=== PATIENT | male | born 1950 | race Caucasian/White ===

== ENCOUNTER 2021-08-28 07:40 | Day surgery (SDC) | payer MEDICARE, MEDICAID ==
[2021-08-21 14:14] LABS: BASOPHILS # (AUTO) 0.1 X10'3 (0-0.2); BASOPHILS % (AUTO) 0.9 % (0-1); EOSINOPHILS # (AUTO) 0.1 X10'3 (0-0.9); EOSINOPHILS % (AUTO) 1.4 % (0-6); LYMPHOCYTES # (AUTO) 1.3 X10'3 (1.1-4.8); LYMPHOCYTES % (AUTO) 17.9 % (21-51); MEAN CORPUSCULAR HEMOGLOBIN 28.4 PG (27.0-31.0); MEAN CORPUSCULAR HGB CONC 32.9 g/dL (33.0-36.5); MEAN CORPUSCULAR VOLUME 86.3 FL (78-98); MEAN PLATELET VOLUME 8.5 FL (7.4-10.4); MONOCYTES # (AUTO) 0.8 X10'3 (0-0.9); MONOCYTES % (AUTO) 10.2 % (2-12); NEUTROPHILS # (AUTO) 5.1 X10'3 (1.8-7.7); NEUTROPHILS % (AUTO) 69.6 % (42-75); PRE OP HEMATOCRIT 42.6 % (42.0-52.0); PRE OP PLATELET COUNT 187 X10'3 (140-440); RED BLOOD COUNT 4.93 X10'6 (4.70-6.10); RED CELL DISTRIBUTION WIDTH 15.3 % (11.5-14.5)
[2021-08-21 14:28] LABS: ALBUMIN/GLOBULIN RATIO 1.1 (1.1-1.5); ALKALINE PHOSPHATASE 49 IU/L (46-116); BLOOD UREA NITROGEN 37 MG/DL (7-18); BUN/CREATININE RATIO 27.2 (5.4-32.0); CALCIUM 9.2 MG/DL (8.5-10.1); CHLORIDE 102 MMOL/L (99-107); CREATININE 1.36 MG/DL (0.60-1.10); PRE OP ALT 19 U/L (30-65); PRE OP ANION GAP 2 (8-16); PRE OP AST 22 U/L (10-37); PRE OP BILIRUB, TOTAL 0.6 MG/DL (0.0-1.0); PRE OP GLUCOSE 97 MG/DL (70-104); PRE OP PROTIME 10.5 SECONDS (9.0-12.0); PRE OP SODIUM 135 MMOL/L (135-145); TOTAL CARBON DIOXIDE 31.3 MMOL/L (24-32); TOTAL PROTEIN 7.6 G/DL (6.4-8.2); eGFR 52 ML/MIN
[~2021-08-28] VITALS: Ht 182.9 cm; Wt 80.1 kg
[2021-08-28] VITALS (16 sets, daily range): BP systolic 102–136; BP diastolic 48–85
[~2021-08-28 07:40] MED LIST: ASPI-1071 PO; ATOR40TA PO; CARV3.12 PO; DOCUMENT DATE & TIME OF BETA-BLOCKER PO ONE; LIDOcaine 1% W/epiNEPHrine 1:100,000 20ml vial ONE; METH20TA40 PO; SPIR25TA5 PO; cocaine 4% topical solution 4ml bottle ONE; diazepam 5mg tablet PO ONE; famotidine 20mg tablet PO ONE; mupirocin 2% ointment 22GM ONE; oxymetazoline 15 ML nasal spray NS ONE; ringers solution, lacted 1,000 ML IV SCH
[2021-08-28] MEDS ORDERED: ondansetron/PF 4mg/2ml inj IV PRN (07:55)
[2021-08-28] MEDS ORDERED: hydrALAZINE 20mg/ml inj. IV PRN (07:55)
[2021-08-28] MEDS ORDERED: labetalol 20mg/4ml (5mg/ml) syringe IV PRN (07:55)
[2021-08-28] MEDS ORDERED: fentaNYL/PF 50MCG/1 ML 2ML syringe IV PRN (07:55)
[2021-08-28] MEDS ORDERED: morphine 2 MG/ML inj. syringe IV PRN (07:55)
[2021-08-28] MEDS ORDERED: ringers solution, lacted 1,000 ML IV SCH (07:55)
[2021-08-28] MEDS: oxymetazoline 15 ML nasal spray NS ONE ×2 (09:11→10:43)
[2021-08-28] MEDS ORDERED: fentaNYL/PF 50MCG/1 ML 2ML syringe ONE (10:05)
[2021-08-28] MEDS ORDERED: ondansetron/PF 4mg/2ml inj ONE (10:06)
[2021-08-28] MEDS ORDERED: etomidate 2mg/ml inj. ONE (10:06)
[2021-08-28] MEDS ORDERED: midazolam 1 mg/ML 2ml injection ONE (10:06)
--- NOTE | 2021-08-28 11:44 | NUR ---
Received from OR [facility] , accompanied by Anesthesiologist DR CARLIN and report given by Anesthesiolgist. PT PRESNTS WITH PIV 20G RIGHT FOREARM, NASAL PACKING, CDI,VSS. Addendum: 08/28/21 at 1200 by Shellie Rivas RN, RN Amended: Links added.
[2021-08-28] MEDS: morphine 4 MG/ML inj SYRINge IV PRN ×2 (12:02→12:08)
[2021-08-28] MEDS ORDERED: salt irrigation nasal spray 45 ML SPRAY NS PRN (12:10)
[2021-08-28] MEDS: fentaNYL/PF 50MCG/1 ML 2ML syringe IV PRN ×2 (12:17→12:38)
[2021-08-28] MEDS ORDERED: HYDROcodone/acetaminophen 5mg/325mg tablet PO ONE (12:55)
--- NOTE | 2021-08-28 13:54 | NUR ---
PT UP AND DRESSED, ABLE TO VOID, VSS, PT REPORTS PAIN /10, PIV D/CD- CANNULA INTACT, DISCUSSED HOME CARE FOR NASAL IRRIGATION AND MEDICATIONS, PT USED OCEAN SPRAY AND OINTMENT BEFORE LEAVING, ALL QUESTIONS ANSWERED, FRESH GAUZE PLACE UNDER NOSE, PT TAKEN WITH SUPPLIES AND BELONGINGS TO VEHICLE, TRANSPORTED BY FRIEND HOME. PT LEFT WITH 2 BELONGING BAGS, DENTURES ,CELL PHONE,DISHA PACK AND PICTURES TAKEN BY DR ROLLINS. PT GIVEN EXTRA GAUZE AND NASAL RINSING LAVAGE. PT ASKED TO RE-READ INSTRUCTIONS WHEN PT GOT HOME AND I EXPRESSED HOW IMPORTANT ALL INSRUCTIONS ARE AND ARE TO BE FOLLOWER PER DR PAL. Addendum: 08/28/21 at 1519 by Shellie Rivas RN, RN Amended: Links added.
== END 2021-08-28 13:54 | disposition home or self-care (01) ==
LOC: PAS 07:40
PROVIDERS: ATTEND Otolaryngology
DX: J34.2 Deviated nasal septum (principal); J32.8 Other chronic sinusitis; J33.8 Other polyp of sinus; I25.2 Old myocardial infarction; E78.5 Hyperlipidemia, unspecified; I25.10 Atherosclerotic heart disease of native coronary artery without angina pectoris; F90.9 Attention-deficit hyperactivity disorder, unspecified type; E11.22 Type 2 diabetes mellitus with diabetic chronic kidney disease; I12.9 Hypertensive chronic kidney disease with stage 1 through stage 4 chronic kidney disease, or unspecified chronic kidney disease; N18.30 Chronic kidney disease, stage 3 unspecified; Z20.822 Contact with and (suspected) exposure to COVID-19; Z95.5 Presence of coronary angioplasty implant and graft; Z87.891 Personal history of nicotine dependence; Z79.899 Other long term (current) drug therapy; Z79.84 Long term (current) use of oral hypoglycemic drugs
CPT/HCPCS: 31255; 31267; 36415; 61782; 80053; 82948; 85025; 85576; 85610; 85730; 87070; 87075; 87635; A6402; C9250; C9803; J2250; J2270; J2405; J3010; J3490; J7030; J7040; J7120; U0003; Z7506; Z7508; Z7512; A4615; A4618; A6449; A7000